=== PATIENT | male | born 1960 | race Caucasian/White ===

== ENCOUNTER 2017-04-07 11:35 | Emergency (ER) | payer OTHER ==
[~2017-04-07] VITALS: Wt 88.0 kg
[2017-04-07] MEDS ORDERED: ATORVASTATIN CA40 M1 PO (11:59)
[2017-04-07] MEDS ORDERED: FENOFIBRATE160 MG PO (11:59)
[2017-04-07] MEDS ORDERED: METOPROLOL SUCC25 M2 PO (11:59)
[2017-04-07] MEDS ORDERED: WARFARIN SOD5 MG PO (11:59)
[2017-04-07] MEDS ORDERED: HCTZ/TRIAMTEREN1 TA3 PO (12:00)
== END 2017-04-07 12:48 | disposition short-term general hospital (02) ==
LOC: ED 11:35
DX: S01.81XA Laceration without foreign body of other part of head, initial encounter (principal); F17.200 Nicotine dependence, unspecified, uncomplicated; Z79.899 Other long term (current) drug therapy; Z88.1 Allergy status to other antibiotic agents; Z79.01 Long term (current) use of anticoagulants; W20.8XXA Other cause of strike by thrown, projected or falling object, initial encounter; Y93.89 Activity, other specified; Y92.69 Other specified industrial and construction area as the place of occurrence of the external cause; Y99.9 Unspecified external cause status